=== PATIENT | female | born 1975 | race Hispanic/Latino ===

== ENCOUNTER 2024-04-04 11:03 | Emergency (ER) | payer OTHER ==
[~2024-04-04] VITALS: Ht 157.5 cm; Wt 79.0 kg
[2024-04-04 11:25] VITALS: BP 136/66
[2024-04-04 11:33] VITALS: BP 124/69
[2024-04-04 12:00] VITALS: BP 126/79
[2024-04-04 12:30] VITALS: BP 131/72
[2024-04-04] MEDS ORDERED: predniSONE 20 MG/TAB PO ONE (12:45)
[2024-04-04] MEDS ORDERED: METHOCARBAMOL 500 MG/TAB PO ONE (12:45)
[2024-04-04] MEDS ORDERED: KETOROLAC TROMETHAMINE 30 MG/ML SDV IM ONE (12:45)
[2024-04-04 13:01] VITALS: BP 134/71
[2024-04-04 13:18] LABS: URINE BILIRUBIN - DIPSTICK Negative (NEGATIVE); URINE BLOOD DIPSTICK Trace-intact (NEGATIVE); URINE GLUCOSE - DIPSTICK Negative (NEGATIVE); URINE KETONE Negative (NEGATIVE); URINE LEUK ESTERASE Trace (NEGATIVE); URINE NITRITE - DIPSTICK Negative (Negative); URINE PROTEIN - DIPSTICK Negative (NEG-TRACE); URINE SPECIFIC GRAVITY 1.015; URINE UROBILINOGEN - DIPSTICK 0.2 E.U./dL (0.2)
[2024-04-04 13:20] LABS: URINE COLOR Yellow
[2024-04-04 14:09] VITALS: BP 134/71
[2024-04-04] MEDS ORDERED: METHOCARBAMOL500 MG PO (14:30)
[2024-04-04] MEDS ORDERED: MEDDOSEPAK PO (14:30)
[2024-04-04] MEDS ORDERED: NAPROXEN500 MG PO (14:30)
== END 2024-04-04 14:53 | disposition home or self-care (01) | DRG 552 ==
LOC: ED 11:03
PROVIDERS: Nurse Practitioner
DX: M54.6 Pain in thoracic spine (principal); M54.50 Low back pain, unspecified